=== PATIENT | male | born 1980 | race Caucasian/White ===

== ENCOUNTER 2016-12-07 09:13 | Day surgery (SDC) | payer BC ==
[2016-12-07] VITALS (16 sets, daily range): BP systolic 109–148; BP diastolic 59–88; PULSE 52–71; RESP 12–20; TEMP 97.1–98.2; O2SAT 94–100; Ht 180.3 cm; Wt 85.0 kg
[~2016-12-07] VITALS: Ht 180.3 cm; Wt 85.0 kg
[~2016-12-07 09:13] MED LIST: AMLO5TAB
--- OUTSIDE RECORDS SUMMARY | 2016-12-07 09:17 | XMS REPORT ---
Author Author [place], [facility] - Organization Unknown Address Unknown Phone Unavailable Allergies, Adverse Reactions, Alerts * No Latex Allergy. * No IV Contrast Allergy. * No Known Drug Allergies. * No Known Food Allergies. * No Known Allergies. Problems * Mobility Impairment* Status:Active. * Pain* Status:Active. Procedures No relevant procedures performed. Medication It is the responsibility of the patient or patient labor representative to confirm the list of medications with either the patient's personal care provider or the patient's follow-up care provider to ensure the patient has an appropriate list of medications to take at home. Discharge medications* amLODIPine 5 mg Tablet, Ordered By: HO MCMAHON Directions: 1 tablet oral daily * HYDROcodone-acetaminophen 5 mg-325 mg Tablet, Ordered By: HO MCMAHON Directions: 1-2 TABS oral every four hours PRN PAIN Stopped medications* OTC Vitamin C tablet 1 tablet oral daily, last taken at home: a week ago Results LAB--BEDSIDE TESTING from 02/24/2013 8:14 AMGlucose NPT 99 mg/dL (70-100 mg/dL) LAB--CHEMISTRY from 02/25/2013 11:56 AMAnion Gap 7 (3-20 ) BUN 12 mg/dL (4-20 mg/dL) Calcium 8.7 mg/dL (8.6-10.0 mg/dL) Chloride 103 mEq/L (99-109 mEq/L) CO2 28 mEq/L (22-32 mEq/L) Creatinine 1.02 mg/dL (0.64-1.27 mg/dL) eGFR >60 (>60- ) Glucose 104 mg/dL H (70-100 mg/dL) Potassium 3.7 mEq/L (3.6-5.1 mEq/L) Sodium 138 mEq/L (136-144 mEq/L) LAB--HEMATOLOGY from 02/25/2013 11:56 AMHCT 42.3 % (42.0-52.0 %) HGB 15.1 g/dl (14.0-18.0 g/dl) MCH 31.8 pg (27.0-32.0 pg) MCHC 35.7 g/dL (32.0-36.0 g/dL) MCV 89.1 fL (82.0-99.0 fL) MPV 8.7 fL L (9.4-12.3 fL) Platelet Count 202 K/uL (150-400 K/uL) RBC 4.75 M/uL (4.60-6.20 M/uL) RDW 13.4 % (11.5-14.5 %) WBC 7.5 K/uL (4.8-10.8 K/uL)
--- OUTSIDE RECORDS SUMMARY | 2016-12-07 09:17 | XMS REPORT | Summary of Care ---
Author Author Zaheer Landis M.D. Organization Unknown Address [address], [place] [id number] Phone Unavailable Care Team Providers Care Electrolysis Engineer Name Role Phone Zaheer Landis M.D. 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 Medications Name Dates Details Atenolol 50 MG Oral Tablet take one tablet by mouth every day Quantity: 30 Zaheer Landis M.D.* Started 12-Oct-2015 ActiveFluticasone Propionate 50 MCG/ACT Nasal Suspension 2 squirts ea nostril once daily * Quantity: 1 Refills: 3 Zaheer Landis M.D.* Started 18-Oct-2015 [id number] GM Bottle Allergies and Adverse Reactions Name Dates Details Amoxicillin CAPS Status: Denied [place] TABS Reaction: Nausea Status: Denied Procedures Procedure Dates Details History of Wrist Surgery History of Foot Surgery History of Elbow Surgery Procedures not documented Immunization Name Dates Details Immunizations not documented Family History Grandmother* Name Dates Details Family history of diabetes mellitus (V18.0, Z83.3) Status: Active Family history of Tumor finding Status: Active uncle* Name Dates Details Family history of lymphoma (V16.7, Z80.2) Status: Active Mother* Name Dates Details Family history of thyroid disease (V18.19, Z83.49) Status: Active Social History Name Dates Details Smoking Status* Never smoker Vital Signs Date Test Result Details 18-Oct-2015 10:01 BP Systolic 146 mm[Hg] Status: BP Diastolic 90 mm[Hg] Status: Temperature 98.4 f Status: Heart Rate 95 /min Status: Height 71 in Status: Weight 182 lb Status: Body Mass Index Calculated 25.38 kg/m2 Status: Body Surface Area Calculated 2.03 m2 Status: Results Date Description Value Details Results not documented Plan of Care Planned Observations* Name Dates Details Planned Goals not documented Goal Instructions * Instructions not documented Encounters Appointment; Zaheer Landis Encounter Diagnosis: Problem not documented On 18-Oct-2015 10:00
--- OUTSIDE RECORDS SUMMARY | 2016-12-07 09:18 | XMS REPORT | Continuity of Care Document ---
Author Author [facility] Organization [facility] Address Unknown Phone Unavailable Allergies Active Description Code Type Severity Reaction Onset Reported/Identified Relationship to Patient Clinical Status Yes No Known Allergies Drug Allergy N/A N/A 02/23/2013 Yes No Known Drug Allergies Drug Allergy N/A N/A 02/23/2013 Yes No Known Food Allergies Food Allergy N/A N/A 02/23/2013 Medications Problems Date Dx Coded Attending Type Code Diagnosis Diagnosed By 02/24/2013 Josesito Charles MD Final 276.8 HYPOPOTASSEMIA 02/24/2013 Josesito Charles MD Final 401.9 HYPERTENSION NOS 02/24/2013 Josesito Charles MD Admitting 719.43 JOINT PAIN-FOREARM 02/24/2013 Josesito Charles MD Final 813.05 CL FX RADIUS HEAD 02/24/2013 Josesito Charles MD Final 814.01 CLSD FX NAVICULAR WRIST 02/24/2013 Josesito Charles MD External E000.0 CIVILIAN ACTIVITY-PAID 02/24/2013 Josesito Charles MD External E849.0 HOME ACCIDENTS 02/24/2013 Josesito Charles MD External E881.0 FALL FROM LADDER Procedures Code Description Performed By Performed On 79.73 CLSD RED DISLOC WRIST Josesito Charles MD 02/23/2013 79.32 ORIF RADIUS/ULNA Josesito Charles MD 02/24/2013 79.33 ORIF CARPALS/METACARPALS Josesito Charles MD 02/24/2013 Results Encounters ACCT No. Visit Date/Time Discharge Status Pt. Type Provider Facility Loc./Unit Complaint [id number] 02/23/2013 21:39:00 2012 14:03:00 DIS Inpatient Josesito Charles MD [facility] on [place] F[address]
[2016-12-07] MEDS ORDERED: OXYC-541 PO (09:30)
[2016-12-07] MEDS ORDERED: MELO-267 PO (09:30)
[2016-12-07] MEDS ORDERED: AMOX1TAB16 PO (09:30)
[2016-12-07] MEDS ORDERED: ATEN50TA PO (09:30)
--- NOTE | 2016-12-07 09:33 | NUR ---
PROVIDER DR MANCUSO AT BEDSIDE FOR H&P
--- OUTSIDE RECORDS SUMMARY | 2016-12-07 09:43 | XMS REPORT ---
Author Author [place], [facility] - Organization Unknown Address Unknown Phone Unavailable Allergies, Adverse Reactions, Alerts * No Latex Allergy. * No IV Contrast Allergy. * No Known Drug Allergies. * No Known Food Allergies. * No Known Allergies. Problems * Mobility Impairment* Status:Active. * Pain* Status:Active. Procedures No relevant procedures performed. Medication It is the responsibility of the patient or patient marketing development representative to confirm the list of medications [...]
--- OUTSIDE RECORDS SUMMARY | 2016-12-07 09:43 | XMS REPORT | Continuity of Care Document ---
Author Author [facility] Organization [facility] Address Unknown Phone Unavailable Allergies Active Description [...] Status Pt. Type Provider Facility Loc./Unit Complaint [id number] 02/23/2013 21:39:00 2012 14:03:00 DIS Inpatient Josesito Charles MD [facility] on [place] F[address]SE
[2016-12-07] MEDS ORDERED: ONDANSETRON 4mg/2ml INJECTION IM ONE (09:45)
[2016-12-07] MEDS ORDERED: KETOROLAC 60mg/2ml INJECTION IM ONE (09:45)
[2016-12-07] MEDS ORDERED: HYDROMORPHONE 2mg/ml INJECTION IM ONE ×2 (09:45→10:15)
--- NOTE | 2016-12-07 09:56 | DI ---
Indication: ITS.REASON: NAIL IN HAND PROCEDURE: HAND RIGHT 3 VIEW: Encounter: Initial Comparison: February 23, 2013 Findings: There is a 4.4 cm long metallic foreign body within the proximal aspect of the long finger. This overlies the base of the proximal phalanx on all three views however I do not see any obvious cortical breakthrough or irregularity. Old orthopedic hardware noted within the distal radius and scaphoid bone. No dislocation. Impression: Metallic foreign body within the soft tissues of the long finger near the proximal phalanx without obvious associated fracture. Recommend follow-up radiographs following removal to exclude bony injury. .
[2016-12-07] MEDS ORDERED: LIDOCAINE 1% (10mg/ml) 30ml SDV INFIL ONE (10:15)
[2016-12-07] MEDS ORDERED: TETANUS,DIPHTH,a PERTUS (Tdap) 0.5 ML VIAL IM ONE (10:15)
[2016-12-07] MEDS ORDERED: ONDANSETRON ODT 4 MG TAB PO ONE (10:15)
--- NOTE | 2016-12-07 10:22 | NUR ---
PROVIDER DR ROJO AT BEDSIDE
--- NOTE | 2016-12-07 10:52 | ERPDOC ---
Departure Disposition Decision Date: Dec 07, 2016 Disposition Decision Time: 10:52 Disposition: 02 TO OBS [facility] [place] Impression Impression: Primary Impression: Foreign body in hand Severity: Moderate Condition: Stable Seen By: Physician only Referrals: LUIS DIAZ MD (Family) Problems/Meds/Labs Reviewed?: Yes Medications reviewed and manag: Yes Follow up care ordered?: Yes Mental Status: Alert, Oriented HPI - Upper Extremity General Chief Complaint: Upper Extremity Injury Stated Complaint: PIECE OF METAL STUCK IN RT HAND Time Seen by MD: 09:34 HPI - Upper Extremity Initial Comments 36-year-old gentleman with nail in right hand. He was nailing some timber and accidentally shot the nail through his hand. He has no other injuries or complaints, he did have to grind the nail off a wall as his hand was over his head and stuck to the wall. Allergies: Coded Allergies: No Known Allergies (Unverified , 12/07/16) Past History Past Medical History Metabolic: hypertension Neurological: concussion Musculoskeletal: neck pain Surgical History General: appendix Joint: foot, other Vaccines Hx Influenza Vaccination: No Hx Pneumococcal Vaccination: No Hx Tetanus, Diptheria, Pertuss: Yes (THINKS 2-4 YRS AGO) Physical Exam General General Nourishment: well nourished, well developed, appears stated age Vitals and Pain First Documented Vital Signs Date Time Temp Pulse Resp B/P Pulse Ox O2 Delivery O2 Flow Rate FiO2 12/07/16 09:56 22 12/07/16 10:44 60 145/95 98 Room Air Weight: Kilograms: Height (feet): 5 Height (inches): 11 Triage Pain Scale: Normal Exams: Head: Normocephalic w/o trauma Chest/Resp: Clear all munoz, with good airflow, and symmetry bilaterally CV: Regular rate and rhythm, without murmur or gallop, Pulses 2+ all extremities, capillary refill, <2 seconds all ext., no pedal edema noted Abdomen: Bowel sounds positive, soft, non-tender, non-distended, no hepatosplenomegaly, masses or bruits noted Musculoskeletal (brief) Comments Nail in right hand. Angling radius to ulna distal metacarpal second and third. Differential Diagnoses Considering: Other (foreign body in hand, nail in hand, puncture wound, fracture) Progress Results/Orders Orders Procedure Category Date Status Time Hand Right 3 View RAD 12/07/16 Resulted 09:22 Ketorolac (Toradol) PHA 12/07/16 Complete 09:45 Hydromorphone PHA 12/07/16 Complete (Dilaudid) 09:45 Ondansetron Inj PHA 12/07/16 Complete (Zofran) 09:45 Lidocaine 1% PHA 12/07/16 Complete (Xylocaine 1%) 10:15 Tetanus,Diphth,A PHA 12/07/16 Complete Pertus (Tdap) (Adacel) 10:15 Hydromorphone PHA 12/07/16 Complete (Dilaudid) 10:15 Ondansetron Odt PHA 12/07/16 Complete (Zofran Odt) 10:15 Medications Current ED Medications Ketorolac Tromethamine (Toradol) 60 mg O ONCE IM Last administered on 09:55; Start 12/07/16 at 09:45; Stop 12/07/16 at 09:46; Status DC Hydromorphone HCl (Dilaudid) 0.5 mg O ONCE IM Last administered on 12/07/16 09:56; Start 12/07/16 at 09:45; Stop 12/07/16 at 09:46; Status DC Ondansetron HCl (Zofran) 4 mg O ONCE IM ; Start 12/07/16 at 09:45; Stop at 10:15; Status DC Lidocaine HCl (Xylocaine 1%) 100 mg O ONCE INFIL Last administered on 10:17; Start 12/07/16 at 10:15; Stop 12/07/16 at 10:16; Status DC Diphtheria/ Tetanus/Acell Pertussis (Adacel) 0.5 ml O ONCE IM ; Start 12/07/16 at 10:15; Stop 12/07/16 at 10:16; Status DC Hydromorphone HCl (Dilaudid) 1 mg O ONCE IM Last administered on 12/07/16 10: 17; Start 12/07/16 at 10:15; Stop 12/07/16 at 10:20; Status DC Ondansetron HCl (Zofran Odt) 4 mg O ONCE PO Last administered on 12/07/16 09: 55; Start 12/07/16 at 10:15; Stop 12/07/16 at 10:20; Status DC Progress Progress Patient's tetanus is brought up-to-date, he was given a total of Toradol 60 mg IM and 1.5 mg Dilaudid IM as well as [address] Barron was consulted, we evaluated the patient's hand and looked at x-rays. Initial attempt to withdraw the nail was difficult and painful for the patient. Some question of the nail is fractured the bone is still impacted on it. Decision is to take the patient to the operating room to remove under anesthesia and revealed a scrub out the wound. Dr. Barron Clyde care of the patient. Patient has been on Augmentin recently, we will give a gram of Ancef IV at this time, keep him nothing by mouth until he goes to the operating room. HUDSON MANCUSO MD Dec 07, 2016 10:52
--- NOTE | 2016-12-07 11:09 | NUR ---
ADMIT PATIENT SENT WITH BRYNN FROM PACU TO SURGERY. BELONGINGS WITH . PATIENT IN GOWN. IV IN PLACE.
[2016-12-07] MEDS ORDERED: LR 1,000 ML IV PRN (11:12)
[2016-12-07] MEDS ORDERED: CEFAZOLIN 1 G in NORMAL SALINE 100 ML IV ONE (11:15)
--- OUTSIDE RECORDS SUMMARY | 2016-12-07 11:18 | XMS REPORT | Continuity of Care Document ---
Author Author [facility] Organization [facility] Address Unknown Phone Unavailable Allergies Active Description [...] Status Pt. Type Provider Facility Loc./Unit Complaint [id number] 02/23/2013 21:39:00 2012 14:03:00 DIS Inpatient Josesito Charles MD [facility] on [place] F[facility]SE
--- OUTSIDE RECORDS SUMMARY | 2016-12-07 11:18 | XMS REPORT ---
Author Author [place], [facility] - Organization Unknown Address Unknown Phone Unavailable Allergies, Adverse Reactions, Alerts * No Latex Allergy. * No IV Contrast Allergy. * No Known Drug Allergies. * No Known Food Allergies. * No Known Allergies. Problems * Mobility Impairment* Status:Active. * Pain* Status:Active. Procedures No relevant procedures performed. Medication It is the responsibility of the patient or patient sales representative sales manager to confirm the list of medications with [...]
--- NOTE | 2016-12-07 11:20 | ANESPREOP ---
Anesthesia Record Date and Time DATE: 12/07/16 TIME: 11:19 Pre-Op Diagnosis Right hand injury Proposed Surgical Procedure Right hand foreign body removal NPO since: Midnight Allergies: Coded Allergies: No Known Allergies (Unverified , 12/07/16) Ht/Wt/BMI Height: 5 ' 11.00 " Weight: 85.000 kg BMI: 26.1 kg/m2 Vital Signs Date Time Temp Pulse Resp B/P Pulse Ox O2 Delivery O2 Flow Rate FiO2 12/07/16 11:09 56 18 143/85 94 Room Air Medications Inpatient Medications Current Medications Medications (Trade) Dose Ordered Sig/Sharmaine Start Time Stop Time Status Last Admin Dose Admin Lactated Ringer's (Lactated Ringers) 1,000 ml @ 0 mls/hr Q0M PRN 12/07/16 11:12 UNV Amox Tr/Potassium Clavulanate (Amox Tr-K Clv 875-125 mg Tab) 875 Mg Tablet, 1 TAB PO Q12HR, (Reported) Last Taken: on 12/07/16 0845 Atenolol (Atenolol) 50 Mg Tablet, 50 MG PO DAILY, (Reported) Last Taken: on 12/07/16 0845 Meloxicam (Meloxicam) 15 Mg Tablet, 15 MG PO DAILY, (Reported) Last Taken: on 12/07/16 0845 Oxycodone HCl/Acetaminophen (Oxycodone- Acetaminophen 5-325) 5-325 Tablet, 1-2 TAB PO Q4-6H PRN for PAIN, (Reported) Last Taken: on 12/07/16 0845 Currently on Beta Yaz: Yes Beta Yaz Last Taken: Atenolol 0800 Medical/Surgical History Anesthesia PMH: Reports: *Hypertension, Headaches (FROM HEAD INJURY), Denies: * Angina, *[place], Anesthesia Reactions, CHF, CVA/Stroke/TIA, Cancer, Deep Vein Thrombosis, Glaucoma, Malignant Hyperthermia, Rheumatic Fever, Seizures Smoking Status: Never smoker Has pt. smoked today?: No Use Chewing Tobacco?: No Second Hand Exposure: No Substance Use Type: does not use Alcohol Intake: rarely Past Surgical History Orthopedic Surgeries: Yes - RT WRIST L WRIST PLATE RT FOOT 7 PINS Abdominal Surgeries: Yes - APPY Genitourinary Surgeries: Cardiac Surgeries: Endocrine Surgeries: Reproductive Surgeries: Neurological Surgeries: Ear Surgeries: Nose Surgeries: Throat Surgeries: Other Surgeries: Yes - RT WRIST L WRIST PLATE RT FOOT 7 PINS Anesthesia Adverse Reactions: FOUND none Family Hx of Anesthesia Advers: none Hx of Motion Sickness: No Pertinent Findings EKG Rhythm: Sinus Rhythm Physical Exam Respiratory: Lungs clear Cardiovascular: FOUND Regular rate, rhythm Airway Assessment Mallampati Score: II TMD: 3 Fingerbreadths Neck Extension: Good Overall Assessment: No Airway Concerns ASA: 2, E Plan Anesthesia Plan: GETA Discussion Discussed risks/options/alternatives of anesthesia and questions answered. Patient consents. Nursing pain assessment noted. Present: Spouse Attestation Statement Prior to the delivery of any anesthetic medication, I examined the patient, developed the plan, obtained the patient's consent and discussed the risk and benefits of the procedure with the patient/guardian. TRISTA HUMPHREY NEON SIGN MECHANIC Dec 07, 2016 11:20
[2016-12-07] MEDS ORDERED: FENTANYL 100mcg/2ml INJECTION ONE (11:25)
[2016-12-07] MEDS ORDERED: METOCLOPRAMIDE 10mg/2ml INJECTION ONE (11:52)
[2016-12-07] MEDS ORDERED: DEXAMETHASONE 4mg/ml - 1ml INJECTION ONE (11:52)
[2016-12-07] MEDS ORDERED: DESFLURANE 240 ML LIQUID IH ONE (11:55)
--- NOTE | 2016-12-07 12:39 | ANESPO ---
Post-Op Note Date 12/07/16 Time: 12:38 Status Pt Participated in Evaluation: Pt participated in person Vital Signs Date Time Temp Pulse Resp B/P Pulse Ox O2 Delivery O2 Flow Rate FiO2 12/07/16 12:30 62 18 115/60 96 Room Air 12/07/16 12:15 6.00 12/07/16 12:13 97.1 Respiratory Function: Airway patent Cardiovascular Function: Regular pulse Telemetry Pattern: SR Mental Status: Alert/oriented Pain Level Intensity: 6 Unable to Assess Pain Due To: Pt Sleeping Hydration: IV infusing Complications during Recovery None apparent Follow-Up Instructions Instructions Per Surgeon TRISTA HUMPHREY CRNA Dec 07, 2016 12:39
[2016-12-07] MEDS ORDERED: CEPH-583 PO (12:42)
--- NOTE | 2016-12-07 12:43 | CONSPD ---
Consultation Info Date DATE: 12/07/16 TIME: 12:30 Impression/Recommendation Impression/Recommendation: (1) Proximal phalanx fracture of finger (2) Foreign body in hand Status: Acute Recommendation: Removal of foreign body right hand with irrigation Ortho HPI HPI Elements Location: FOUND fingers Injury: Yes Pain: FOUND stabbing Onset: Sudden Severity: FOUND severe Duration: FOUND 1-6 hours Previous Surgery: Yes HPI Stephen is a 36-year-old male who was working on a home project this morning when a nail then externally fired and went to his right hand. The nail also into a wall hitting his hand to the wall and the used a roll grinder operator to cut the nail. He then presented to the emergency room here [facility] and x- rays were questionable for nail going through his proximal phalanx of middle finger. He has no previous injury to this digit. He states he can move his fingers minimally but they're extremely painful. He denies any significant numbness. Review of Systems Constitutional: DENIES: chills, fever Cardiovascular DENIES: chest pain Pulmonary Respiratory: DENIES: dyspnea GI Upper Abdomen: DENIES: nausea, vomiting Lower Abdomen: DENIES: constipation, diarrhea Musculoskeletal General: see HPI Past Medical History Adult Surgical History Patient's Surgical History: Scaphoid Fracture ORIF Bilaterally Current Medications Amox Tr/Potassium Clavulanate (Amox Tr-K Clv 875-125 mg Tab) 875 Mg Tablet, 1 TAB PO Q12HR, (Reported) Last Taken: Unknown Dose on 12/07/16 0845 Atenolol (Atenolol) 50 Mg Tablet, 50 MG PO DAILY, (Reported) Last Taken: Unknown Dose on 12/07/16 0845 Meloxicam (Meloxicam) 15 Mg Tablet , 15 MG PO DAILY, (Reported) Last Taken: Unknown Dose on 12/07/16 0845 Oxycodone HCl/Acetaminophen ( Oxycodone-Acetaminophen 5-325) 5-325 Tablet, 1-2 TAB PO Q4-6H PRN for PAIN, ( Reported) Last Taken: Unknown Dose on 12/07/16 0845 Allergies Allergies: Coded Allergies: No Known Allergies (Unverified , 12/07/16) Vaccines NO No 12/07/16 Social History Smoking Status: Never smoker Does patient use chewing tobac: No Second Hand Exposure: No Substance Use Type: does not use Advance Directives: No DPOA for Healthcare Only Physical Exam General General: well nourished, well developed, no acute distress Respiratory FOUND non-labored Cardiovascular FOUND pedal pulses intact Musculoskeletal Comments The nail head is seen between the ring and middle finger dorsally with the sharp end of the nail exiting the palm proximal to the ring finger. He can minimally move his digits but this causes extreme pain. Refill is brisk in all digits. He has good radial pulse. Integumentary FOUND dry, FOUND pink, FOUND warm Neurologic FOUND intact to light touch Psychiatric FOUND alert, FOUND normal affect LULÚ ROJO MD Dec 07, 2016 12:40
[2016-12-07] MEDS ORDERED: HYDROMORPHONE 2mg/ml INJECTION IV PRN (12:45)
[2016-12-07] MEDS ORDERED: MORPHINE SULFATE 10 MG SYRINGE IV PRN (12:45)
[2016-12-07] MEDS ORDERED: ONDANSETRON 4mg/2ml INJECTION IV PRN (12:45)
--- NOTE | 2016-12-07 13:53 | DI ---
Indication: ITS.REASON: FB REMOVAL R HAND PROCEDURE: RF HAND RIGHT 3 VIEWS: Encounter: Initial Comparison: Hand radiographs from earlier today Findings: Seven fluoroscopic spot images are submitted for interpretation. Images show removal of the metallic foreign body from the long finger proximal phalanx base. Post removal views show a round lucency in the base of the proximal phalanx confirming that there is an open fracture. Impression: Open fracture of the long finger proximal phalanx base. Fluoroscopy time is 27.3 seconds. Fluoroscopy dose is 59.3 mRad. .
--- NOTE | 2016-12-09 10:31 | OPNOTEF ---
DATE OF PROCEDURE 12/07/2016 PREOPERATIVE DIAGNOSIS Foreign body, right hand, deep. POSTOPERATIVE DIAGNOSIS Foreign body, right hand, deep. PROCEDURE Removal of deep foreign body, right hand. SURGEON Jigna Barron MD BLACKENER Chris Levi MD COMPLICATIONS None. ANESTHESIA General endotracheal. DESCRIPTION OF PROCEDURE Stephen and his right hand were identified and marked. He was brought back to the operative suite and placed on the table under anesthesia. Timeout was then performed. Before the hand was prepped and draped I did take some fluoroscopic images which did confirm that the nail had traversed through the proximal phalanx of the middle digit. The hand and the nail which was exposed was prepped and draped with Betadine. The nail was easily removed using a pair of needle drivers. Fluoroscopic images were again taken immediately to ensure a fracture had not occurred while removing the nail which it had not. The path of the nail through the bone was clearly seen. It did not appear to violate the joint. The nail entered dorsally in the webspace between the index and middle finger and exited just proximal to the ring finger. Both entry and exit sites were thoroughly irrigated with first a bulb syringe and then with an Angiocatheter. I was able to freely passively flex all digits without any signs of crepitans, obvious deformity or instability. The hand was then cleaned of Betadine. The wounds were dressed with 4 x 4s, Kerlix and an Tyson. The drapes were removed and he was allowed to awaken from general anesthesia. He was taken to the recovery room under the care of Anesthesia. He tolerated the procedure well. There were no complications. DOMONIQUE
== END 2016-12-07 14:19 | disposition home or self-care (01) ==
LOC: ED 09:13 → SCU 11:08
PROVIDERS: ATTEND Orthopaedic Surgery
DX: S61.441A Puncture wound with foreign body of right hand, initial encounter (principal); I10 Essential (primary) hypertension; Z79.899 Other long term (current) drug therapy; W45.0XXA Nail entering through skin, initial encounter; W29.4XXA Contact with nail gun, initial encounter; Y92.009 Unspecified place in unspecified non-institutional (private) residence as the place of occurrence of the external cause
CPT/HCPCS: 90471; 90715; 96372